=== PATIENT | female | born 1935 | race Caucasian/White ===

== ENCOUNTER 2016-06-19 12:28 | Emergency (ER) | payer MEDICARE, BC ==
--- NOTE | 2016-06-19 12:38 | EDM.PDOC ---
ED HPI GENERAL MEDICAL PROBLEM - General Chief Complaint: Genitourinary Problem Stated Complaint: abd pain Time Seen by Provider: 06/19/16 12:28 Source of Information: Reports: Patient, Family (Son, daughter), Old records ( [facility] chart/EMR) History Limitations: Reports: No limitations - History of Present Illness INITIAL COMMENTS - FREE TEXT/NARRATIVE: The patient was brought to the emergency room via private automobile by her son for evaluation of nonspecific left CVA tenderness with questionable colic component. Initially her symptoms began at about 3 a.m. with 200 mg ibuprofen taken at that time. She denies any gross hematuria or other UTI symptoms. He complains of 10/10 left CVA in back pain at about 3 a.m. with improvement to 1/ 10 on arrival to the emergency room. The patient was evaluated by her regular provider, Cristin Gamble PA-C, at [facility] in [place], prior to arrival in our facility with positive UA dip but no other treatment given in that facility. No recent history of other abdominal pain, heartburn, nausea, diarrhea, melena, gross hematochezia, or any food intolerance, including fatty foods, etc. with normal bowel movement earlier this morning. The patient denies any chest pain/pressure, heart flutter, dizziness, orthostasis, orthopnea, diaphoresis, paresthesias, recent decreased exercise tolerance, or any other anginal-type symptoms. The patient also denies any recent fever, cough, wheezing , dyspnea, etc.. No history of recent headaches, visual changes, diplopia, change in mental status, or other change in neurological status. Note that she did not take her morning medications today other than her Synthroid Onset: today, sudden Onset Date: 06/19/16 Onset Time: 03:00 Duration: Intermittent, Improving Location: Reports: abdomen, back Quality: Reports: Sharp Severity: severe Improves with: Reports: None Worsens with: Reports: None Context: Reports: Other (As above) Associated Symptoms: Reports: no other symptoms. 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 (As above) Left Upper Posterior Abdominal Pain Score (Numeric/FACES): 1 - Related Data Allergies Allergy/AdvReac Type Severity Reaction Status Date / Time levofloxacin [From Levaquin] Allergy Rash Verified 06/19/16 12:40 Penicillins Allergy Rash Verified 06/19/16 12:40 Sulfa (Sulfonamide Allergy Rash Verified 06/19/16 12:40 Antibiotics) Home Meds: Home Meds Atenolol [Tenormin] 25 mg PO BID 03/31/14 [History] Levothyroxine Sodium [Synthroid] 75 mcg PO DAILY 03/31/14 [History] Aspirin 81 mg PO ONETIME 02/24/15 [History] Lisinopril 10 mg PO DAILY 02/24/15 [History] Nitrofurantoin Monohyd/M-Cryst [Macrobid 100 mg Capsule] 100 mg PO DAILY #14 capsule 06/19/16 [Rx] Past Medical History HEENT History: Reports: Cataract, Hard of hearing, Impaired vision, Macular degeneration, Other (see below). Denies: Allergic rhinitis, Glaucoma, Retinal detachment Other HEENT History: Wears glasses, bilateral hearing aides, bilateral macular degeneration with current intraocular treatments Cardiovascular History: Reports: Arrhythmia, High cholesterol, Hypertension, Pacemaker, Other (see below). Denies: Afib, Aneurysm, Blood clots/VTE/DVT, Bypass, CAD, Heart murmur, IN, PTCA, PVD, Stents, Syncope Other Cardiovascular History: Pacemaker placement as below secondary to sick sinus syndrome, Mobitz 1 second-degree AV block, and then subsequent complete heart block, mild cardiomegaly by chest x-ray Respiratory History: Reports: COPD, Other (see below). Denies: Asthma, Intubation, difficult, Intubation, previous, PE, Pneumothorax, Pulmonary fibrosis, Sleep apnea, TB Other Respiratory History: COPD by chest x-ray with no treatment needed at this time Gastrointestinal History: Reports: Chronic constipation, Diverticulosis, Gastritis, GERD, Jaundice, Other (see below). Denies: Bowel obstruction, Celiac disease, Cholelithiasis, Chronic diarrhea, Colon polyp, Fecal incontinence, GI bleed, Hepatitis, Inflammatory bowel disease, Irritable bowel syndrome, Pancreatitis, PUD Other Gastrointestinal History: jaundice, benign hepatic cysts Genitourinary History: Reports: Retention, urinary, UTI, recurrent, Other (see below). 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 Denies: Dysfunctional uterine bleeding, Endometriosis, Fibroids, Polycystic Ovaries : 8 Para: 6 LMP (Approximate): Menopausal Other OB/BYN History: Menopause in her 40s, first trimester SAB with D&C as below, otherwise Full term without complications during pregnancies or deliveries Musculoskeletal History: Reports: Arthritis, Back pain, chronic, Fracture, Neck pain, chronic, Osteoarthritis, Osteoporosis, Other (see below). Denies: Gout, RA, SLE Other Musculoskeletal History: Left wrist fracture on 08/24/14, left partial Achilles tendon tear on 04/27/14, pes planus, right foot fracture in the early , scoliosis Neurological History: Reports: Headaches, chronic, Migraines, Other (see below) . Denies: Alzheimers disease, Cerebral aneurysms, Concussion, CVA, Head trauma , MS, Neuropathy, diabetic, Neuropathy, peripheral, Parkinson's, Seizure, TIA, Vertigo Other Neuro History: Previous history of migraine headaches currently under good control Psychiatric History: Reports: Anxiety, Depression. Denies: Abuse, victim of, ADD, ADHD, Addiction, Panic attack, Psych Hospitalization(s), PTSD, Suicide attempt, Suicidal ideation Endocrine/Metabolic History: Reports: Hypothyroidism, Osteoporosis, Other (see below). Denies: Diabetes, type I, Diabetes, type II, IDDM Other Endocrine/Metabolic History: Thyroid surgery as below with secondary hypothyroidism and history of multiple thyroid cysts Hematologic History: Reports: None. Denies: Anemia, Blood transfusion(s), Iron deficiency Immunologic History: Reports: None. Denies: AIDS, HIV, SLE Oncologic (Cancer) History: Reports: None. Denies: Basal cell carcinoma, Cervix , Colon, Hodgkin's Lymphoma, Leukemia, Malignant melanoma, Non-Hodgkin's Lymphoma, Squamous cell carcinoma Dermatologic History: Reports: None. Denies: Eczema, Psoriasis - Infectious Disease History Infectious Disease History: Reports: Chicken pox, Mumps, Pertussis (whooping cough), Rubella, Scarlet fever. Denies: C-difficile, Helicobacter pylori, Measles, Meningitis, Mononucleosis, MRSA, Rheumatic Fever, Shingles, TB, VRE - Past Surgical History Head Surgeries/Procedures: Reports: None. Denies: Craniotomy HEENT Surgical History: Reports: Cataract surgery, Other (see below). Denies: Adenoidectomy, Eye surgery, Laser surgery, LASIK, Myringotomy w tube(s), Naso- sinus surgery, Oral surgery, Tonsillectomy Other HEENT Surgeries/Procedures: [place] teeth extraction x4 in her 20s, multiple teeth extractions, bilateral cataract surgery with right sided extraction in about 2014 and left-sided cataract surgery in about 2004 Cardiovascular Surgical History: Reports: Pacer, Other (see below). Denies: Aneurysm, Varicose, Vascular surgery Other Cardiovascular Surgeries/Procedures: 10/09/07 Respiratory Surgical History: Reports: None. Denies: Lung Biopsies, Thoracentesis GI Surgical History: Reports: Appendectomy, Other (see below). Denies: Cholecystectomy, Colonoscopy, EGD, Hernia, abdominal, Hernia, inguinal, Hernia repair/other Other GI Surgeries/Procedures: Appendectomy on 12/25/14 Female Surgical History: Reports: Breast biopsy, D&C, Tubal ligation, Other ( see below). Denies: section Other Female Surgeries/Procedures: Right breast biopsy for benign disease in in about 1962, D&C secondary to SAB in about 1959, bilateral tubal ligation in her early 30s Endocrine Surgical History: Reports: Thyroid biopsy, Thyroidectomy, Other (see below) Other Endocrine Surgeries/Procedures: Left partial hemithyroidectomy in the , Neurological Surgical History: Reports: None. Denies: C-Spine, Discectomy, Laminectomy, Lumbar spine, Spinal fusion, Vertebroplasty Musculoskeletal Surgical History: Reports: Arthroscopic knee, Arthroscopic procedure, Other (see below). Denies: Amputation, Carpal tunnel, Ganglion cyst , Joint replacement, ORIF, Shoulder surgery Other Musculoskeletal Surgeries/Procedures:: Right arthroscopic knee surgery in in about 1989 Oncologic Surgical History: Reports: Biopsy of breast (Breast biopsy as above) Dermatological Surgical History: Reports: None - Past Imaging History Past Imaging History: Reports: CAT scan (CT of the abdomen and pelvis with contrast on 02/24/15 and 08/26/09), DEXA scan (12/18/11), Stress testing ( Cardiolite stress test on 04/15/03), Ultrasound (Thyroid ultrasound on 11/24/13, arterial Doppler elevation and evaluation of the left forearm on 11/05/12, renal ultrasound on 03/15/12, gallbladder ultrasound on 11/15/06) Social & Family History - Tobacco Use Smoking Status *Q: Never Smoker Smoking Cessation Information Provided To Patient: No Second Hand Smoke Education Provided: No - Caffeine Use Caffeine Use: Reports: Coffee (3 tabs per day). Denies: Energy drinks, Soda, Tea - Alcohol Use Alcohol Use History: Yes Days Per Week of Alcohol Use: 4 (No previous DWIs, problems with alcohol abuse, etc.) Number of Drinks Per Day: 1 (Usually wine) Total Drinks Per Week: 4 Alcohol Use in Last Twelve Months: Yes Alcohol Use Frequency: Socially - Recreational Drug Use Recreational Drug Use: No Drug Use in Last 12 Months: No Recreational Drug Type: Denies: Amphetamines (Speed), Cocaine, Heroin, Inhalants (Glues, Solvents, Aerosols), LSD (Acid), Marijuana/Hashish, Methamphetamine - Living Situation & Occupation Living situation: Reports: (2012, 5 children living), alone Occupation: other ([employer] in the past) ED ROS GENERAL - Review of Systems Review Of Systems: See Below Constitutional: Reports: no symptoms. Denies: fever, chills, malaise, weakness , fatigue, night sweats, diaphoresis, decreased appetite, weight loss, weight gain HEENT: Reports: No symptoms, Glasses. Denies: Dental pain, Ear discharge, Ear pain, Eye pain, Sinus problem, Throat pain, Vertigo, Vision change Respiratory: Reports: No Symptoms. Denies: Shortness of Breath, Wheezing, Pleuritic Chest Pain, Cough Cardiovascular: Reports: Blood pressure problem (Blood pressure significantly elevated on arrival with patient not taking her morning medications). Denies: Chest pain, Dyspnea on exertion, Edema, Lightheadedness, Orthopnea, Palpitations , PND, Syncope Endocrine: Reports: no symptoms. Denies: fatigue GI/Abdominal: Reports: Abdominal pain (Colic as above). Denies: Anorexia, Black stool, Bloody stool, Constipation, Diarrhea, Decreased appetite, Difficulty swallowing, Distension, Flatus, Hematemesis, Hematochezia, Melena, Mucous in stool, Nausea, Stool incontinence, Vomiting : Reports: pain (Left CVA colic). Denies: discharge, frequency, hematuria, incontinence, urgency, urinary retention Musculoskeletal: Reports: no symptoms. Denies: neck pain, shoulder pain, arm pain, back pain, hand pain, leg pain Skin: Reports: no symptoms. Denies: jaundice, pallor, diaphoresis, bruising, wound Neurological: Reports: No Symptoms. Denies: Confusion, Dizziness, Headache, Numbness, Paresthesia, Syncope, Tingling, Weakness Psychiatric: Reports: No symptoms. Denies: Agitation, Anxiety, Confusion, Depression Hematologic/Lymphatic: Reports: no symptoms Immunologic: Reports: no symptoms ED EXAM, GENERAL - Physical Exam Exam: See Below Exam Limited By: No limitations General Appearance: alert, WD/WN, no apparent distress Ears: normal external exam, normal canal, normal TMs, hearing loss (Left-sided hearing aid) Nose: normal inspection, normal mucosa, no blood Throat/Mouth: Normal inspection, Normal lips, Normal gums, Normal oropharynx, Normal voice, No airway compromise. No: Normal teeth (Partial upper dentures, multiple missing teeth lowers), Dysphagia, Inflammation Head: atraumatic, normocephalic. No: facial swelling, facial tenderness, sinus tenderness Neck: normal inspection, supple, non-tender, full range of motion, carotid bruit (Mild bilateral carotid bruits). No: lymphadenopathy (L), lymphadenopathy (R), thyromegaly Respiratory/Chest: no respiratory distress, lungs clear, normal breath sounds, no accessory muscle use, chest non-tender. No: pleural rub, retractions Cardiovascular: normal peripheral pulses, regular rate, rhythm, no edema, no gallop, no JVD, no murmur, no rub. No: gallop/S3, gallop/S4, friction rub Peripheral Pulses: 4+: radial (L), radial (R) GI/Abdominal: normal bowel sounds, soft, non tender, no organomegaly, no distention, no abnormal bruit, no mass. No: guarding, rebound (Female) Exam: Deferred Rectal (Female) Exam: Deferred Back Exam: normal inspection, full range of motion. No: CVA tenderness (L) ( Despite above history), CVA tenderness (R), muscle spasm Extremities: normal inspection, normal range of motion, non-tender, no pedal edema, normal capillary refill, other (Bilateral pes planus-mild to moderate). No: Eileen's Sign Neurological: alert, oriented, CN II-XII intact, normal cognition, normal gait, normal reflexes (Negative Babinski's), no motor/sensory deficits Psychiatric: anxious (Mild). No: depressed mood Skin Exam: Warm, Dry, Intact, Normal color, No rash. No: Diaphoretic, Ecchymosis, Jaundice, Pallor, Petechiae, Rash, Wound/incision Lymphatic: no adenopathy Course - Vital Signs Last Recorded V/S: Last Vital Signs Temp Pulse 92 06/19/16 12:44 Resp BP 210/102 H 06/19/16 12:44 Pulse Ox Vital Signs - 24 hr 06/19/16 06/19/16 06/19/16 12:28 12:44 12:49 Temperature [ 36.6 C Oral] Pulse, 92 Peripheral Pulse, 61 60 Peripheral [ Right Pulse Oximetry] Respiratory 16 16 Rate Blood Pressure 210/102 H Blood Pressure 210/102 H 160/74 H [Right Upper Arm] O2 Sat by Pulse 99 98 Oximetry 06/19/16 06/19/16 06/19/16 13:04 13:19 13:34 Temperature [ Oral] Pulse, Peripheral Pulse, 60 60 Peripheral [ Right Pulse Oximetry] Respiratory 16 16 Rate Blood Pressure Blood Pressure 164/72 H 145/70 H 161/68 H [Right Upper Arm] O2 Sat by Pulse 95 99 Oximetry 06/19/16 13:49 Temperature [ Oral] Pulse, Peripheral Pulse, 59 L Peripheral [ Right Pulse Oximetry] Respiratory Rate Blood Pressure Blood Pressure 159/82 H [Right Upper Arm] O2 Sat by Pulse Oximetry - Orders/Labs/Meds Orders: Active Orders 24 hr Category Date Time Status Abdomen Comp [US] Stat Exams 06/19/16 12:47 Ordered CULTURE URINE [RM] Routine Lab 06/19/16 14:08 Received Durable Medical Equipment for Discharge [DME for Oth 06/19/16 14:44 Ordered Discharge] [COMM] Routine Obtain Past Medical Record [OM.PC] Routine Oth 06/19/16 12:47 Active Labs: Laboratory Tests 06/19/16 06/19/16 06/19/16 Range/Units 12:50 12:50 12:50 WBC 6.0 (4.0-10.2) K/uL RBC 3.64 L (3.77-5.09) M/uL Hgb 12.8 D (11.7-15.5) g/dL Hct 36.6 (34.0-46.0) % MCV 100.5 H D (84.0-98.0) fL MCH 35.2 H (28.2-33.3) pg MCHC 35.0 (31.7-36.0) g/dL RDW 12.9 (11.2-14.1) % Plt Count 238 (150-350) K/uL Neut % (Auto) 67.4 (45.0-80.0) % Lymph % (Auto) 21.3 (10.0-50.0) % [place] % (Auto) 8.7 (2.0-14.0) % Eos % (Auto) 2.3 (0.0-5.0) % Baso % (Auto) 0.3 (0.0-2.0) % Neut # (Auto) 4.02 (1.40-7.00) K/uL Lymph # (Auto) 1.27 (0.50-3.50) K/uL [place] # (Auto) 0.52 (0.00-1.00) K/uL Eos # (Auto) 0.14 (0.00-0.50) K/uL Baso # (Auto) 0.02 (0.00-0.20) K/uL PT 11.5 (9.8-11.7) SEC INR 1.1 APTT 26.6 (23.5-30.0) SEC Sodium 138 (136-145) mmol/L Potassium 3.8 (3.5-5.1) mmol/L Chloride 104 (98-107) mmol/L Carbon Dioxide 26.1 (21.0-32.0) mmol/L BUN 11 (7-18) mg/dL Creatinine 0.91 (0.51-1.17) mg/dL Est Cr Clr Drug Dosing TNP Estimated GFR (MDRD) 59 mL/min Glucose 97 (74-106) mg/dL Lactic Acid (0.4-2.0) mmol/L Uric Acid 4.0 (2.6-7.2) mg/dL Calcium 8.5 (8.5-10.1) mg/dL Magnesium 1.8 (1.8-2.4) mg/dL Total Bilirubin 0.6 (0.2-1.0) mg/dL AST 18 (15-37) U/L ALT 18 (12-78) U/L Alkaline Phosphatase 84 (46-116) IU/L Total Protein 6.5 (6.4-8.2) g/dL Albumin 3.4 (3.4-5.0) g/dL Amylase 66 (25-115) U/L Lipase 156 (73-393) U/L Specimen Type Urine Color Urine Appearance Urine pH (5.0-9.0) Ur Specific [place] (1.005-1.030) Urine Protein (NEGATIVE) mg/dL Urine Glucose (UA) (NEGATIVE) mg/dL Urine Ketones (NEGATIVE) mg/dL Urine Occult Blood (NEGATIVE) Urine Nitrite (NEGATIVE) Urine Bilirubin (NEGATIVE) Urine Urobilinogen (0.2-1.0) E.U./dL Ur Leukocyte Esterase (NEGATIVE) Urine RBC /HPF Urine WBC /HPF Ur Epithelial Cells /LPF Urine Bacteria (NONE TO FEW) /HPF 06/19/16 06/19/16 Range/Units 12:50 14:08 WBC (4.0-10.2) K/uL RBC (3.77-5.09) M/uL Hgb (11.7-15.5) g/dL Hct (34.0-46.0) % MCV (84.0-98.0) fL MCH (28.2-33.3) pg MCHC (31.7-36.0) g/dL RDW (11.2-14.1) % Plt Count (150-350) K/uL Neut % (Auto) (45.0-80.0) % Lymph % (Auto) (10.0-50.0) % [place] % (Auto) (2.0-14.0) % Eos % (Auto) (0.0-5.0) % Baso % (Auto) (0.0-2.0) % Neut # (Auto) (1.40-7.00) K/uL Lymph # (Auto) (0.50-3.50) K/uL [place] # (Auto) (0.00-1.00) K/uL Eos # (Auto) (0.00-0.50) K/uL Baso # (Auto) (0.00-0.20) K/uL PT (9.8-11.7) SEC INR APTT (23.5-30.0) SEC Sodium (136-145) mmol/L Potassium (3.5-5.1) mmol/L Chloride (98-107) mmol/L Carbon Dioxide (21.0-32.0) mmol/L BUN (7-18) mg/dL Creatinine (0.51-1.17) mg/dL Est Cr Clr Drug Dosing Estimated GFR (MDRD) mL/min Glucose (74-106) mg/dL Lactic Acid 0.8 (0.4-2.0) mmol/L Uric Acid (2.6-7.2) mg/dL Calcium (8.5-10.1) mg/dL Magnesium (1.8-2.4) mg/dL Total Bilirubin (0.2-1.0) mg/dL AST (15-37) U/L ALT (12-78) U/L Alkaline Phosphatase (46-116) IU/L Total Protein (6.4-8.2) g/dL Albumin (3.4-5.0) g/dL Amylase (25-115) U/L Lipase (73-393) U/L Specimen Type Urincc Urine Color Light yellow Urine Appearance Slightly cloudy Urine pH 7.0 (5.0-9.0) Ur Specific [place] 1.020 (1.005-1.030) Urine Protein Negative (NEGATIVE) mg/dL Urine Glucose (UA) Negative (NEGATIVE) mg/dL Urine Ketones Trace H (NEGATIVE) mg/dL Urine Occult Blood Moderate H (NEGATIVE) Urine Nitrite Positive H (NEGATIVE) Urine Bilirubin Negative (NEGATIVE) Urine Urobilinogen 0.2 (0.2-1.0) E.U./dL Ur Leukocyte Esterase Small H (NEGATIVE) Urine RBC 0-5 /HPF Urine WBC 10-20 H /HPF Ur Epithelial Cells Moderate H /LPF Urine Bacteria Many H (NONE TO FEW) /HPF Urine specimen set up for culture and sensitivity Meds: Medications Discontinued Medications Generic Name Dose Route Start Last Admin Trade Name Freq PRN Reason Stop Dose Admin Metoprolol Tartrate 2.5 mg 06/19/16 12:39 06/19/16 12:44 Lopressor IVPUSH 06/19/16 12:40 2.5 mg ONETIME ONE Administration - Radiology Interpretation Free Text/Narrative:: Verbal report at 13:55 hours with Berenice military pay technician from our facility , discussing complete abdominal ultrasound results. Likely stable bilateral renal cysts and hepatic cysts with additional stable by history prominent commen bile duct but no evidence of acute cholecystitis. No evidence of hydronephrosis or urolithiasis, although exam difficult secondary to bowel gas Departure - Departure Time of Disposition: 15:10 Disposition: Home, Self-Care 01 Condition: good Clinical Impression: UTI, Urinary tract infectious disease, Hepatic cyst, Renal cyst Hyperlipidemia Qualifiers: Hyperlipidemia type: unspecified Qualified Code(s): E78.5 - Hyperlipidemia, unspecified Osteoarthritis Qualifiers: Osteoarthritis location: multiple joints Osteoarthritis type: primary Qualified Code(s): M15.0 - Primary generalized (osteo)arthritis Hypertension Qualifiers: Hypertension type: essential hypertension Qualified Code(s): I10 - Essential ( primary) hypertension Hypothyroidism Qualifiers: Hypothyroidism type: acquired Qualified Code(s): E03.9 - Hypothyroidism, unspecified COPD (chronic obstructive pulmonary disease) Qualifiers: COPD type: emphysema Emphysema type: panlobular Qualified Code(s): J43.1 - Panlobular emphysema Abdominal pain Qualifiers: Abdominal location: left upper quadrant Qualified Code(s): R10.12 - Left upper quadrant pain Prescriptions: Nitrofurantoin Monohyd/M-Cryst [Macrobid 100 mg Capsule] 100 mg PO DAILY #14 capsule Instructions: Urinary Tract Infection, Adult, [id number] Referrals: PCP,Unknown [Primary Care Provider] - Forms: ED Department Discharge Additional Instructions: 1. Followup with your regular provider in about 2-3 days for reevaluation and recommended CBC and basic metabolic panel 2. Take your morning medications COLETTE and also your initial dose of antibiotic as discussed 3. Tylenol 650 mg by mouth every 4 hours and/or OTC ibuprofen 2-3 tabs by mouth every 6 hours with food as directed./needed. 4. Encourage oral fluids, including daily cranberry use, etc.as directed. 5. Strain all urine and bring stone to your regular provider or this facility as directed for further stone analysis. 6. Urine tests should be repeated at follow up visit in about 10-14 days with possible repeat urine culture,etc. at that time. Today's urine culture is pending with results in about 2-3 days. We will call you, if we need to change your therapy. - Problem List & Annotations (1) UTI, Urinary tract infectious disease SNOMED Code(s): 24831347 Code(s): N39.0 - URINARY TRACT INFECTION, SITE NOT SPECIFIED Status: Acute Priority: High Current Visit: Yes Onset Date: 06/19/16 Annotation/ Comment:: Probable cystitis versus beginning pyelonephritis, although no fever or leukocytosis. Various therapeutic options were discussed with the patient and her family with CT scan of the abdomen and pelvis using stone protocol to be delayed for the time being. Note that her CT scan her was broken today with complete abdominal ultrasound results as above. No direct evidence of hydronephrosis or urolithiasis. Initiate Macrobid therapy with close followup by her regular provider as per discharge instructions. She was provided a strainer for collection of possible urinary stone, although her symptoms are more typical for her UTI rather than true colic (2) Abdominal pain SNOMED Code(s): 07821378 Code(s): R10.9 - UNSPECIFIED ABDOMINAL PAIN Status: Acute Priority: High Current Visit: Yes Onset Date: 06/19/16 Annotation/Comment:: As above Qualifiers: Abdominal location: left upper quadrant Qualified Code(s): R10.12 - Left upper quadrant pain (3) COPD (chronic obstructive pulmonary disease) SNOMED Code(s): 96672706 Code(s): J44.9 - CHRONIC OBSTRUCTIVE PULMONARY DISEASE, UNSPECIFIED Status : Chronic Priority: Medium Current Visit: Yes Annotation/Comment:: By chest x-ray with no recent fever bronchitic-type symptoms and no current medical therapy required Qualifiers: COPD type: emphysema Emphysema type: panlobular Qualified Code(s): J43.1 - Panlobular emphysema (4) Hepatic cyst SNOMED Code(s): 39511425 Code(s): K76.89 - OTHER SPECIFIED DISEASES OF LIVER Status: Chronic Priority: Medium Current Visit: Yes Annotation/Comment:: Stable by today's ultrasound (5) Hyperlipidemia SNOMED Code(s): 19042319 Code(s): E78.5 - HYPERLIPIDEMIA, UNSPECIFIED Status: Chronic Priority: Medium Current Visit: Yes Annotation/Comment:: Currently not under therapy Qualifiers: Hyperlipidemia type: unspecified Qualified Code(s): E78.5 - Hyperlipidemia , unspecified (6) Hypertension SNOMED Code(s): 02045505 Code(s): I10 - ESSENTIAL (PRIMARY) HYPERTENSION Status: Chronic Priority : High Current Visit: Yes Annotation/Comment:: Patient did not take her medications this morning. Overall good response with low-dose IV Lopressor in the emergency room. She was advised to take her morning medications COLETTE when she returns home Qualifiers: Hypertension type: essential hypertension Qualified Code(s): I10 - Essential (primary) hypertension (7) Hypothyroidism SNOMED Code(s): 03221959 Code(s): E03.9 - HYPOTHYROIDISM, UNSPECIFIED Status: Chronic Priority: Medium Current Visit: Yes Annotation/Comment:: Currently under therapy Qualifiers: Hypothyroidism type: acquired Qualified Code(s): E03.9 - Hypothyroidism, unspecified (8) Osteoarthritis SNOMED Code(s): 903978763 Code(s): M19.90 - UNSPECIFIED OSTEOARTHRITIS, UNSPECIFIED SITE Status: Chronic Priority: Medium Current Visit: Yes Annotation/Comment:: Otherwise stable by history with normal uric acid level today Qualifiers: Osteoarthritis location: multiple joints Osteoarthritis type: primary Qualified Code(s): M15.0 - Primary generalized (osteo)arthritis - Problem List Review Problem List Initiated/Reviewed/Updated: Yes - My Orders Last 24 Hours: My Active Orders 06/19/16 12:47 Abdomen Comp [US] Stat Obtain Past Medical Record [OM.PC] Routine 06/19/16 14:08 CULTURE URINE [RM] Routine 06/19/16 14:44 Durable Medical Equipment for Discharge [DME for Discharge] [COMM] Routine - Assessment/Plan Last 24 Hours: My Active Orders 06/19/16 12:47 Abdomen Comp [US] Stat Obtain Past Medical Record [OM.PC] Routine 06/19/16 14:08 CULTURE URINE [RM] Routine 06/19/16 14:44 Durable Medical Equipment for Discharge [DME for Discharge] [COMM] Routine Assessment:: As above Plan: As above. Extensive precautions were given to the patient and her family, who are in agreement with the treatment plan. See Patient Instructions for further treatment and plan.
[2016-06-19] MEDS ORDERED: Metoprolol Tartrate 5 MG/5 ML SDV IVPUSH ONE (12:39)
[2016-06-19 13:10] LABS: CHLORIDE,CL 104 mmol/L (98-107); SODIUM,NA 138 mmol/L (136-145)
[2016-06-19 14:56] VITALS: BP 159/82
== END 2016-06-19 15:10 | disposition home or self-care (01) ==
LOC: LL.ED 12:28
DX: N39.0 Urinary tract infection, site not specified (principal); K76.89 Other specified diseases of liver; N28.1 Cyst of kidney, acquired; E78.5 Hyperlipidemia, unspecified; M15.0 Primary generalized (osteo)arthritis; E03.9 Hypothyroidism, unspecified; I10 Essential (primary) hypertension; J43.1 Panlobular emphysema; Z88.0 Allergy status to penicillin; Z88.2 Allergy status to sulfonamides; Z88.1 Allergy status to other antibiotic agents; Z79.82 Long term (current) use of aspirin; Z98.890 Other specified postprocedural states
CPT/HCPCS: 36415; 76700; 80053; 81001; 82150; 83605; 83690; 83735; 84550; 85025; 85610; 85730; 87086; 87088; 87186; 96374; 99283; 99285; J3490

== ENCOUNTER 2016-06-29 10:07 | Emergency (ER) | payer MEDICARE, BC ==
[2016-06-29 10:14] VITALS: BP 145/81
--- NOTE | 2016-06-29 10:28 | EDM.PDOC ---
ED HPI GENERAL MEDICAL PROBLEM - General Chief Complaint: General Stated Complaint: Wood tick by eye Time Seen by Provider: 06/29/16 10:10 Source of Information: Reports: Patient, Old records ([facility] chart/EMR) History Limitations: Reports: No limitations - History of Present Illness INITIAL COMMENTS - FREE TEXT/NARRATIVE: The patient drove herself to the emergency room via private automobile for evaluation of a probable wood tick under her right eye, which was diagnosed by her chiropractor shortly prior to arrival to our facility. She was apparently bitten in her home in the evening of 06/23 with some increasing redness and mild discomfort since that time. She does have a dog at home. The patient was evaluated by her regular provider, Cristin Gamble PA-C, at [facility] in [facility] on 06/26 and started on oral Keflex and Cipro eyedrops with mild cellulitis secondary to a skin tag diagnosed at that time. The patient has not had any ocular drainage, rashes in other locations, arthralgias, etc.. Note that the patient is also suffering from a UTI with increase of her Keflex therapy to 500 mg dose at time of office visit on 06/26. The patient also denies any recent fever, cough, wheezing, dyspnea, etc.. Onset: sudden Onset Date: 06/23/16 Duration: Getting worse, Improving Quality: Reports: Ache Severity: mild Improves with: Reports: None Worsens with: Reports: None Context: Reports: Other (As above) Associated Symptoms: Reports: rash (Mild erythema at the insect bite site). Denies: confusion, chest pain, cough, diaphoresis, fever/chills, headaches, loss of appetite, malaise, nausea/vomiting, shortness of breath, syncope, weakness Treatments FOREST ECONOMIST: Reports: Other medication(s) (As above) Right Middle Face Pain Score (Numeric/FACES): 2 - Related Data Allergies Allergy/AdvReac Type Severity Reaction Status Date / Time levofloxacin [From Levaquin] Allergy Rash Verified 06/29/16 10:20 Penicillins Allergy Rash Verified 06/29/16 10:20 Sulfa (Sulfonamide Allergy Rash Verified 06/29/16 10:20 Antibiotics) Home Meds: Home Meds Atenolol [Tenormin] 25 mg PO BID 03/31/14 [History] Levothyroxine Sodium [Synthroid] 75 mcg PO DAILY 03/31/14 [History] Aspirin 81 mg PO ONETIME 02/24/15 [History] Lisinopril 10 mg PO DAILY 02/24/15 [History] Cephalexin 500 mg PO TID 06/29/16 [History] Ciprofloxacin [IJD: Ciloxan 0.3% Ophth Soln] 1 drop EYERT BID 06/29/16 [History] Doxycycline [Vibramycin] 100 mg PO BID #20 cap 06/29/16 [Rx] Past Medical History HEENT History: Reports: Cataract, Hard of hearing, Impaired vision, Macular degeneration, Other (see below). Denies: Allergic rhinitis, Glaucoma, Retinal detachment Other HEENT History: Wears glasses, bilateral hearing aides, bilateral macular degeneration with current intraocular treatments Cardiovascular History: Reports: Arrhythmia, High cholesterol, Hypertension, Pacemaker, Other (see below). Denies: Afib, Aneurysm, Blood clots/VTE/DVT, Bypass, CAD, Heart murmur, MN, PTCA, PVD, Stents, Syncope Other Cardiovascular History: Pacemaker placement as below secondary to sick sinus syndrome, Mobitz 1 second-degree AV block, and then subsequent complete heart block, mild cardiomegaly by chest x-ray Respiratory History: Reports: COPD, Other (see below). Denies: Asthma, Intubation, difficult, Intubation, previous, PE, Pneumothorax, Pulmonary fibrosis, Sleep apnea, TB Other Respiratory History: COPD by chest x-ray with no treatment needed at this time Gastrointestinal History: Reports: Chronic constipation, Diverticulosis, Gastritis, GERD, Jaundice, Other (see below). Denies: Bowel obstruction, Celiac disease, Cholelithiasis, Chronic diarrhea, Colon polyp, Fecal incontinence, GI bleed, Hepatitis, Inflammatory bowel disease, Irritable bowel syndrome, Pancreatitis, PUD Other Gastrointestinal History: jaundice, benign hepatic cysts Genitourinary History: Reports: Retention, urinary, UTI, recurrent, Other (see below). Denies: Acute renal failure, Chronic renal insuffiency, Dialysis, Renal calculus, STD, Urinary incontinence Other Genitourinary History: Bilateral benign renal cysts, benign left renal hamartoma a CT scan in August 2009 and as below ICE HANDLER History: Reports: , Spontaneous . Denies: Dysfunctional uterine bleeding, Endometriosis, Fibroids, Polycystic Ovaries : 8 Para: 6 LMP (Approximate): Menopausal Other OB/BYN History: Menopause in her 40s, first trimester SAB with D&C as below, otherwise Full term without complications during pregnancies or deliveries Musculoskeletal History: Reports: Arthritis, Back pain, chronic, Fracture, Neck pain, chronic, Osteoarthritis, Osteoporosis, Other (see below). Denies: Gout, RA, SLE Other Musculoskeletal History: Left wrist fracture on 08/24/14, left partial Achilles tendon tear on 04/27/14, pes planus, right foot fracture in the early , scoliosis Neurological History: Reports: Headaches, chronic, Migraines, Other (see below) . Denies: Alzheimers disease, Cerebral aneurysms, Concussion, CVA, Head trauma , MS, Neuropathy, diabetic, Neuropathy, peripheral, Parkinson's, Seizure, TIA, Vertigo Other Neuro History: Previous history of migraine headaches currently under good control Psychiatric History: Reports: Anxiety, Depression. Denies: Abuse, victim of, ADD, ADHD, Addiction, Panic attack, Psych Hospitalization(s), PTSD, Suicide attempt, Suicidal ideation Endocrine/Metabolic History: Reports: Hypothyroidism, Osteoporosis, Other (see below). Denies: Diabetes, type I, Diabetes, type II, IDDM Other Endocrine/Metabolic History: Thyroid surgery as below with secondary hypothyroidism and history of multiple thyroid cysts Hematologic History: Reports: None. Denies: Anemia, Blood transfusion(s), Iron deficiency Immunologic History: Reports: None. Denies: AIDS, HIV, SLE Oncologic (Cancer) History: Reports: None. Denies: Basal cell carcinoma, Cervix , Colon, Hodgkin's Lymphoma, Leukemia, Malignant melanoma, Non-Hodgkin's Lymphoma, Squamous cell carcinoma Dermatologic History: Reports: None. Denies: Eczema, Psoriasis - Infectious Disease History Infectious Disease History: Reports: Chicken pox, Mumps, Pertussis (whooping cough), Rubella, Scarlet fever. Denies: C-difficile, Helicobacter pylori, Measles, Meningitis, Mononucleosis, MRSA, Rheumatic Fever, Shingles, TB, VRE - Past Surgical History Head Surgeries/Procedures: Reports: None. Denies: Craniotomy HEENT Surgical History: Reports: Cataract surgery, Other (see below). Denies: Adenoidectomy, Eye surgery, Laser surgery, LASIK, Myringotomy w tube(s), Naso- sinus surgery, Oral surgery, Tonsillectomy Other HEENT Surgeries/Procedures: [place] teeth extraction x4 in her 20s, multiple teeth extractions, bilateral cataract surgery with right sided extraction in about 2014 and left-sided cataract surgery in about 2004 Cardiovascular Surgical History: Reports: Pacer, Other (see below). Denies: Aneurysm, Varicose, Vascular surgery Other Cardiovascular Surgeries/Procedures: Pacemaker placement on 10/09/07 Respiratory Surgical History: Reports: None. Denies: Lung Biopsies, Thoracentesis GI Surgical History: Reports: Appendectomy, Other (see below). Denies: Cholecystectomy, Colonoscopy, EGD, Hernia, abdominal, Hernia, inguinal, Hernia repair/other Other GI Surgeries/Procedures: Appendectomy on 12/25/14 Female Surgical History: Reports: Breast biopsy, D&C, Tubal ligation, Other ( see below). Denies: section Other Female Surgeries/Procedures: Right breast biopsy for benign disease in in about 1962, D&C secondary to SAB in about 1959, bilateral tubal ligation in her early 30s Endocrine Surgical History: Reports: Thyroid biopsy, Thyroidectomy, Other (see below) Other Endocrine Surgeries/Procedures: Left partial hemithyroidectomy in the , Neurological Surgical History: Reports: None. Denies: C-Spine, Discectomy, Laminectomy, Lumbar spine, Spinal fusion, Vertebroplasty Musculoskeletal Surgical History: Reports: Arthroscopic knee, Arthroscopic procedure, Other (see below). Denies: Amputation, Carpal tunnel, Ganglion cyst , Joint replacement, ORIF, Shoulder surgery Other Musculoskeletal Surgeries/Procedures:: Right arthroscopic knee surgery in in about 1989 Oncologic Surgical History: Reports: Biopsy of breast (Breast biopsy as above) Dermatological Surgical History: Reports: None - Past Imaging History Past Imaging History: Reports: CAT scan (CT of the abdomen and pelvis with contrast on 02/24/15 and 08/26/09), DEXA scan (12/18/11), Stress testing ( Cardiolite stress test on 04/15/03), Ultrasound (Thyroid ultrasound on 11/24/13, arterial Doppler elevation and evaluation of the left forearm on 11/05/12, renal ultrasound on 03/15/12, gallbladder ultrasound on 11/15/06) Social & Family History - Tobacco Use Smoking Status *Q: Never Smoker Used Tobacco, but Quit: No Smoking Cessation Information Provided To Patient: No Second Hand Smoke Exposure: No Second Hand Smoke Education Provided: No - Caffeine Use Caffeine Use: Reports: Coffee (3 cups per day). Denies: Energy drinks, Soda, Tea - Alcohol Use Alcohol Use History: Yes Days Per Week of Alcohol Use: 4 (No previous DWIs, problems with alcohol abuse, etc.) Number of Drinks Per Day: 1 (Usually wine) Total Drinks Per Week: 4 Alcohol Use in Last Twelve Months: Yes Alcohol Use Frequency: Socially - Recreational Drug Use Recreational Drug Use: No Drug Use in Last 12 Months: No Recreational Drug Type: Denies: Amphetamines (Speed), Cocaine, Heroin, Inhalants (Glues, Solvents, Aerosols), LSD (Acid), Marijuana/Hashish, Methamphetamine, Morphine - Living Situation & Occupation Living situation: Reports: (2013, 5 children living), alone Occupation: other ([employer] in the past) ED ROS GENERAL - Review of Systems Review Of Systems: See Below Constitutional: Reports: no symptoms. Denies: fever, chills, malaise, weakness , fatigue, night sweats, diaphoresis, decreased appetite, weight loss, weight gain HEENT: Reports: Hearing loss (With bilateral hearing aids to stable), Other ( Wood tick under right eye with mild surrounding redness). Denies: Ear discharge , Ear pain, Eye discharge, Eye pain, Glasses, Nose pain, Rhinitis, Sinus problem , Throat pain, Vertigo, Vision change Respiratory: Reports: No Symptoms. Denies: Shortness of Breath, Wheezing, Pleuritic Chest Pain, Cough, Hemoptysis Cardiovascular: Reports: No symptoms. Denies: Chest pain, Blood pressure problem, Claudication, Dyspnea on exertion, Edema, Lightheadedness, Orthopnea, Palpitations, PND, Syncope Endocrine: Reports: no symptoms. Denies: fatigue GI/Abdominal: Reports: No symptoms. Denies: Abdominal pain, Anorexia, Black stool, Bloody stool, Constipation, Diarrhea, Decreased appetite, Difficulty swallowing, Flatus, Melena, Nausea, Stool incontinence, Vomiting : Reports: no symptoms. Denies: discharge, dysuria, flank pain, frequency, hematuria, incontinence, pain, urgency, urinary retention Musculoskeletal: Reports: no symptoms. Denies: neck pain, shoulder pain, arm pain, back pain, leg pain, joint pain, joint swelling, muscle pain Skin: Reports: erythema (As above). Denies: diaphoresis, bruising, pruritis, rash Neurological: Reports: No Symptoms. Denies: Confusion, Dizziness, Headache, Numbness, Paresthesia, Tingling, Weakness Psychiatric: Reports: No symptoms. Denies: Agitation, Anxiety, Confusion, Depression Hematologic/Lymphatic: Reports: no symptoms Immunologic: Reports: no symptoms ED EXAM, GENERAL - Physical Exam Exam: See Below Exam Limited By: No limitations General Appearance: alert, WD/WN, no apparent distress Eye Exam: bilateral eye: EOMI, normal inspection (No conjunctival injection, ocular drainage, etc. with only minimally swollen mid aspect of the inferior right eyelid with 0.5 centimeter wood tic noted just below the mid lower eyelid) , PERRL Ears: normal external exam, normal canal, normal TMs, hearing loss (Mild bilateral presbycusis with adequate bilateral hearing aid therapy) Nose: normal inspection, normal mucosa, no blood Throat/Mouth: Normal inspection, Normal lips, Normal teeth, Normal gums, Normal oropharynx, Normal voice, No airway compromise. No: Dysphagia, Perioral cyanosis Head: atraumatic, normocephalic, facial tenderness (Equivocal tenderness over the insect bite site with surrounding 1 cm in diameter area of +1 erythema, no lymphangitis or drainage). No: facial swelling, sinus tenderness Neck: normal inspection, supple, non-tender, full range of motion. No: lymphadenopathy (L), lymphadenopathy (R), thyromegaly Respiratory/Chest: no respiratory distress, lungs clear, normal breath sounds, no accessory muscle use, chest non-tender. No: pleural rub, retractions Cardiovascular: normal peripheral pulses, regular rate, rhythm, no edema, no gallop, no JVD, no murmur, no rub. No: gallop/S3, gallop/S4, friction rub Peripheral Pulses: 4+: radial (L), radial (R) GI/Abdominal: normal bowel sounds, soft, non tender, no organomegaly, no distention, no abnormal bruit, no mass. No: guarding (Female) Exam: Deferred Rectal (Female) Exam: Deferred Back Exam: normal inspection, full range of motion. No: CVA tenderness (L), CVA tenderness (R), muscle spasm Extremities: normal inspection, normal range of motion, non-tender, normal capillary refill, no pedal edema Neurological: alert, oriented, CN II-XII intact, normal cognition, normal gait, no motor/sensory deficits Psychiatric: normal affect Skin Exam: Erythema (As above), Wound/incision (Tick as above). No: Diaphoretic , Lymphangitis, Rash Lymphatic: no adenopathy Course - Vital Signs Last Recorded V/S: Last Vital Signs Temp 36.9 C 06/29/16 10:13 Pulse 60 06/29/16 10:13 Resp 16 06/29/16 10:13 BP 145/81 H 06/29/16 10:13 Pulse Ox 99 06/29/16 10:13 Vital Signs - 24 hr 06/29/16 10:13 Temperature [ 36.9 C Temporal] Pulse, 60 Peripheral [ Pulse Oximetry] Respiratory 16 Rate Blood Pressure 145/81 H [Right Upper Arm] O2 Sat by Pulse 99 Oximetry - Orders/Labs/Meds Labs: None Meds: Medications Discontinued Medications Generic Name Dose Route Start Last Admin Trade Name Freq PRN Reason Stop Dose Admin Neomycin/Polymyxin/Bacitracin 1 each 06/29/16 10:30 06/29/16 10:34 Triple Antibiotic Oint TOP 06/29/16 10:31 1 each ONETIME ONE Administration - Radiology Interpretation Free Text/Narrative:: None Departure - Departure Time of Disposition: 10:43 Disposition: Home, Self-Care 01 Condition: good Clinical Impression: Wood tick bite, UTI, Urinary tract infectious disease Cellulitis Qualifiers: Site of cellulitis: face Qualified Code(s): L03.211 - Cellulitis of face COPD (chronic obstructive pulmonary disease) Qualifiers: COPD type: emphysema Emphysema type: panlobular Qualified Code(s): J43.1 - Panlobular emphysema Hypertension Qualifiers: Hypertension type: essential hypertension Qualified Code(s): I10 - Essential ( primary) hypertension Hypothyroidism Qualifiers: Hypothyroidism type: acquired Qualified Code(s): E03.9 - Hypothyroidism, unspecified Osteoarthritis Qualifiers: Osteoarthritis location: multiple joints Osteoarthritis type: primary Qualified Code(s): M15.0 - Primary generalized (osteo)arthritis Prescriptions: Doxycycline [Vibramycin] 100 mg PO BID #20 cap Instructions: Cellulitis, Adult, [id number], West Nile Virus Referrals: Cristin Locke PA-C [Primary Care Provider] - Forms: ED Department Discharge Additional Instructions: 1. Followup with your regular provider in 10-14 days as directed with additional consideration of repeat urine tests at that time. 2. Tylenol 650 mg by mouth every 4 hours and/or OTC ibuprofen 2-3 tabs by mouth every 6 hours with food as directed./needed. 3. Antibacterial soap wash/soak with subsequent antibacterial dressing such as Neosporin, etc. as directed 2 times per day until the wound site completely heals. Keep the area clean and dry with soap and Neosporin to be kept out of your eye as discussed. - Problem List & Annotations (1) Cellulitis SNOMED Code(s): 016503143 Code(s): L03.90 - CELLULITIS, UNSPECIFIED Status: Acute Priority: High Current Visit: Yes Onset Date: ~06/23/16 Annotation/Comment:: Continue current medical therapy with additional oral doxycycline secondary to the tick bite. Lyme's disease precautions and instructions provided to the patient with no direct evidence of significant symptoms, need for titers, etc. Qualifiers: Site of cellulitis: face Qualified Code(s): L03.211 - Cellulitis of face (2) Wood tick bite SNOMED Code(s): 45595559 Code(s): W57.XXXA - BIT/STUNG BY NONVENOM INSECT & OTH NONVENOM ARTHROPODS, INIT Status: Acute Priority: High Current Visit: Yes Onset Date: Annotation/Comment:: As above. Note that the tick bite area was disinfected with multiple alcohol wipes with subsequent careful removal of the entire tick by means of forceps. An otoscope was used to verify complete removal of the insect including stinger. Neosporin dressing placed by the nurse. Wound care as per discharge instructions (3) UTI, Urinary tract infectious disease SNOMED Code(s): 53642643 Code(s): N39.0 - URINARY TRACT INFECTION, SITE NOT SPECIFIED Status: Acute Priority: High Current Visit: Yes Onset Date: 06/19/16 Annotation/ Comment:: Continue current antibiotic therapy close followup by her regular provider as per discharge instructions (4) Hyperlipidemia SNOMED Code(s): 70938637 Code(s): E78.5 - HYPERLIPIDEMIA, UNSPECIFIED Status: Chronic Priority: Medium Current Visit: No Annotation/Comment:: Currently not under therapy Qualifiers: Hyperlipidemia type: unspecified Qualified Code(s): E78.5 - Hyperlipidemia , unspecified (5) Osteoarthritis SNOMED Code(s): 299261709 Code(s): M19.90 - UNSPECIFIED OSTEOARTHRITIS, UNSPECIFIED SITE Status: Chronic Priority: Medium Current Visit: Yes Annotation/Comment:: Otherwise stable by history with normal uric acid level on 06/19/16 Qualifiers: Osteoarthritis location: multiple joints Osteoarthritis type: primary Qualified Code(s): M15.0 - Primary generalized (osteo)arthritis (6) Hypertension SNOMED Code(s): 76751234 Code(s): I10 - ESSENTIAL (PRIMARY) HYPERTENSION Status: Chronic Priority : High Current Visit: Yes Annotation/Comment:: Patient did not take her medications this morning. Continue to observe closely by her regular provider. She was advised to take her morning medications [place] when she returns home Qualifiers: Hypertension type: essential hypertension Qualified Code(s): I10 - Essential (primary) hypertension (7) Hypothyroidism SNOMED Code(s): 90223390 Code(s): E03.9 - HYPOTHYROIDISM, UNSPECIFIED Status: Chronic Priority: Medium Current Visit: Yes Annotation/Comment:: Currently under therapy Qualifiers: Hypothyroidism type: acquired Qualified Code(s): E03.9 - Hypothyroidism, unspecified (8) COPD (chronic obstructive pulmonary disease) SNOMED Code(s): 37135423 Code(s): J44.9 - CHRONIC OBSTRUCTIVE PULMONARY DISEASE, UNSPECIFIED Status : Chronic Priority: Medium Current Visit: Yes Annotation/Comment:: By chest x-ray with no recent fever bronchitic-type symptoms and no current medical therapy required Qualifiers: COPD type: emphysema Emphysema type: panlobular Qualified Code(s): J43.1 - Panlobular emphysema - Problem List Review Problem List Initiated/Reviewed/Updated: Yes - Assessment/Plan Assessment:: As above Plan: As above. Extensive precautions were given to the patient, who is in agreement with the treatment plan. See Patient Instructions for further treatment and plan.
[2016-06-29] MEDS ORDERED: Bacitracin/Neomycin/Polymyxin B Oint 0.9 GM U/D Packet TOP ONE (10:30)
== END 2016-06-29 10:43 | disposition home or self-care (01) ==
LOC: LL.ED 10:07
DX: L03.211 Cellulitis of face (principal); N39.0 Urinary tract infection, site not specified; J43.1 Panlobular emphysema; I10 Essential (primary) hypertension; E03.9 Hypothyroidism, unspecified; Z88.2 Allergy status to sulfonamides; Z88.0 Allergy status to penicillin; Z79.82 Long term (current) use of aspirin; Z79.899 Other long term (current) drug therapy; E78.00 Pure hypercholesterolemia, unspecified; W57.XXXA Bitten or stung by nonvenomous insect and other nonvenomous arthropods, initial encounter
CPT/HCPCS: 10120; 99283

== ENCOUNTER 2017-03-08 02:55 | Emergency (ER) | payer MEDICARE, BC ==
--- NOTE | 2017-03-08 03:01 | EDM.PDOC ---
ED HPI GENERAL MEDICAL PROBLEM - General Chief Complaint: Cardiovascular Problem Stated Complaint: HTN, "not feeling right" Time Seen by Provider: 03/08/17 02:55 Source of Information: Reports: Patient, Family (Son), Old Records ([facility] chart/EMR) History Limitations: Reports: No Limitations - History of Present Illness INITIAL COMMENTS - FREE TEXT/NARRATIVE: The patient was brought to the emergency room via private automobile by her son for evaluation of elevated blood pressure this evening with home blood pressure of 166/103 and 180/99 the right arm and 95/60 in the left arm at home prior to arrival to the emergency room. Note the patient has a wrist home blood pressure monitor. She complains of just "not feeling well" prior to going to bed this evening at about 23:00 hours. She does admit to significant recent stress during the hols with the patient sewing 28 quilt blankets for her family since January. Note that the patient was changed from to Tenormin to low -dose Coreg on 01/29 secondary to medication availability with no repeat blood pressure checks to this point. The patient denies any chest pain/pressure, heart flutter, dizziness, orthostasis, orthopnea, diaphoresis, paresthesias, recent decreased exercise tolerance, or any other anginal-type symptoms. No recent history of abdominal pain, heartburn, nausea, diarrhea, melena, gross hematochezia, or any food intolerance, including fatty foods, etc.. Patient completed Macrobid therapy about 3 days ago secondary to a recent UTI with no current UTI symptoms. The patient also denies any recent fever, cough, wheezing , dyspnea, etc.. She has not used any recent OTC cold preparations, etc.. No history of recent headaches, visual changes, diplopia, change in mental status, or other change in neurological status. Also note that the patient was taken off of lisinopril several months ago secondary to a chronic cough with improved symptoms since that time. She denies any pain or other discomfort Onset: Gradual Onset Date: 03/07/17 Onset Time: 23:00 Duration: Intermittent Location: Reports: Other (No pain) Improves with: Reports: None Worsens with: Reports: None Context: Reports: Other (As above) Associated Symptoms: Denies: Confusion, Chest Pain, Cough, Diaphoresis, Fever/ Chills, Headaches, Loss of Appetite, Malaise, Nausea/Vomiting, Seizure, Shortness of Breath, Syncope, Weakness Treatments SUPERVISOR CORE DRILLING: Reports: Other (see below) (None) - Related Data Allergies Allergy/AdvReac Type Severity Reaction Status Date / Time levofloxacin [From Levaquin] Allergy Rash Verified 03/08/17 03:09 lisinopril Allergy Cough Verified 03/08/17 03:12 Penicillins Allergy Rash Verified 03/08/17 03:09 Sulfa (Sulfonamide Allergy Rash Verified 03/08/17 03:09 Antibiotics) Home Meds: Home Meds Levothyroxine Sodium [Synthroid] 75 mcg PO DAILY 03/31/14 [History] Aspirin 81 mg PO BEDTIME 02/24/15 [History] Carvedilol [Coreg] 12.5 mg PO BIDM #60 tablet 03/08/17 [Rx] Cyanocobalamin (Vitamin B12) [Vitamin B12] 1,000 mcg IM Q30D 03/08/17 [History] Past Medical History HEENT History: Reports: Cataract, Hard of Hearing, Impaired Vision, Macular Degeneration, Other (See Below). Denies: Allergic Rhinitis, Glaucoma, Retinal Detachment Other HEENT History: Wears glasses, bilateral hearing aides, bilateral macular degeneration with current intraocular treatments Cardiovascular History: Reports: Arrhythmia, High Cholesterol, Hypertension, Pacemaker, Other (See Below). Denies: Afib, Aneurysm, Blood Clots/VTE/DVT, CAD , Heart Failure, Heart Murmur, [place], PTCA, PVD, Stents, Syncope Other Cardiovascular History: Pacemaker placement as below secondary to sick sinus syndrome, Mobitz 1 second-degree AV block, and then subsequent complete heart block, mild cardiomegaly by chest x-ray Respiratory History: Reports: COPD, Other (See Below). Denies: Asthma, Intubation, Previous, PE, Pneumothorax, Pulmonary Fibrosis, Sleep Apnea Other Respiratory History: COPD by chest x-ray with no treatment needed at this time Gastrointestinal History: Reports: Chronic Constipation, Diverticulosis, Gastritis, GERD, Jaundice, Other (See Below). Denies: Celiac Disease, Cholelithiasis, Chronic Diarrhea, Colon Polyp, Fecal Incontinence, GI Bleed, Hepatitis, Hiatal Hernia, Inflammatory Bowel Disease, Irritable Bowel Syndrome, Pancreatitis, PUD Other Gastrointestinal History: jaundice, benign hepatic cysts Genitourinary History: Reports: Retention, Urinary, UTI, Recurrent, Other (See Below). Denies: Acute Renal Failure, Chronic Renal Insuffiency, Renal Calculus , STD, Urinary Incontinence Other Genitourinary History: Bilateral benign renal cysts, benign left renal hamartoma by CT scan in August 2009 and as below DIPLOMATIC OFFICER History: Reports: , Spontaneous . Denies: Dysfunctional Uterine Bleeding, Endometriosis, Fibroids, Polycystic Ovaries : 8 Para: 6 LMP (Approximate): Other (See Below) Other OB/BYN History: Menopause in her 40s, first trimester SAB with D&C as below, otherwise Full term without complications during pregnancies or deliveries Musculoskeletal History: Reports: Arthritis, Back Pain, Chronic, Fracture, Neck Pain, Chronic, Osteoarthritis, Osteoporosis, Other (See Below). Denies: Gout, RA, SLE Other Musculoskeletal History: Left wrist fracture on 08/24/14, left partial Achilles tendon tear on 04/27/14, pes planus, right foot fracture in the early , scoliosis; Neurological History: Reports: Headaches, Chronic, Migraines, Other (See Below) . Denies: Alzheimers Disease, Cerebral Aneurysms, Concussion, CVA, Head Trauma , Neuropathy, Diabetic, Neuropathy, Peripheral, Parkinson's, Seizure, TIA Other Neuro History: Previous history of migraine headaches currently under good control Psychiatric History: Reports: Anxiety, Depression. Denies: Abuse, Victim of, ADD, ADHD, Addiction, Panic Attack, Psych Hospitalization(s), PTSD, Suicide Attempt, Suicidal Ideation Endocrine/Metabolic History: Reports: Hypothyroidism, Osteoporosis, Other (See Below). Denies: Diabetes, Type I, Diabetes, Type II, IDDM Other Endocrine/Metabolic History: Thyroid surgery as below with secondary hypothyroidism and history of multiple thyroid cysts Hematologic History: Reports: Anemia, B12 Deficiency. Denies: Blood Transfusion (s), Iron Deficiency Immunologic History: Reports: None. Denies: AIDS, HIV, SLE Oncologic (Cancer) History: Reports: None. Denies: Basal Cell Carcinoma, Cervix , Colon, Hodgkin's Lymphoma, Leukemia, Malignant Melanoma, Non-Hodgkin's Lymphoma, Squamous Cell Carcinoma Dermatologic History: Reports: None. Denies: Eczema, Psoriasis - Infectious Disease History Infectious Disease History: Reports: Chicken Pox, Mumps, Pertussis (Whooping Cough), Rubella, Scarlet Fever. Denies: C-Difficile, Measles, Meningitis, Mononucleosis, MRSA, TB, VRE - Past Surgical History Head Surgeries/Procedures: Reports: None HEENT Surgical History: Reports: Cataract Surgery, Oral Surgery, Other (See Below). Denies: Adenoidectomy, Eye Surgery, LASIK, Myringotomy w Tube(s), Naso- Sinus Surgery, Tonsillectomy Other HEENT Surgeries/Procedures: Earth teeth extraction 4 in her 20s with additional multiple tooth extractions; bilateral cataract surgeries with right sided extraction in about 2014 and left-sided cataract surgery in about 2004; Cardiovascular Surgical History: Reports: Pacer, Other (See Below). Denies: Varicose, Vascular Surgery Other Cardiovascular Surgeries/Procedures: Pacemaker placement on 10/09/07 Respiratory Surgical History: Reports: None. Denies: Lung Biopsies, Thoracentesis GI Surgical History: Reports: Appendectomy, Other (See Below). Denies: Cholecystectomy, Colonoscopy, EGD, Hernia, Abdominal, Hernia, Inguinal, Hernia Repair/Other Other GI Surgeries/Procedures: Appendectomy on 12/25/14 Female Surgical History: Reports: Breast Biopsy, D&C, Tubal Ligation, Other ( See Below) Other Female Surgeries/Procedures: Right breast biopsy for benign disease in about 1962; D&C secondary to SAB in about ; bilateral tubal ligation in her early 30s Endocrine Surgical History: Reports: Thyroid Biopsy, Thyroidectomy, Other (See Below) Other Endocrine Surgeries/Procedures: Left partial hemithyroidectomy in the Neurological Surgical History: Reports: None. Denies: C-Spine, Discectomy, Laminectomy, Lumbar Spine, Sacral Spine, Vertebroplasty Musculoskeletal Surgical History: Reports: Arthroscopic Knee, Arthroscopic Procedure, Other (See Below). Denies: Carpal Tunnel, Ganglion Cyst, Joint Replacement, ORIF, Shoulder Surgery Other Musculoskeletal Surgeries/Procedures:: Right arthroscopic knee surgery in about 1979 Oncologic Surgical History: Reports: Biopsy of Breast, Other (See Below) Other Oncologic Surgeries/Procedures: Breast biopsy as above Dermatological Surgical History: Reports: None - Past Imaging History Past Imaging History: Reports: CAT Scan (CT of the abdomen and pelvis with contrast on 02/24/15 and 08/26/09), DEXA Scan (12/18/11), Stress Testing ( Cardiolite stress test on 04/15/03), Ultrasound (Thyroid ultrasound on 9/15/14; arterial Doppler evaluation of the left forearm on 11/05/12; renal ultrasound on 03/15/12; gallbladder ultrasound on 11/15/06) Social & Family History - Tobacco Use Smoking Status *Q: Never Smoker Used Tobacco, but Quit: No Second Hand Smoke Exposure: No Second Hand Smoke Education Provided: No - Caffeine Use Caffeine Use: Reports: Coffee (3 cups per day). Denies: Energy Drinks, Soda, Tea - Alcohol Use Alcohol Use History: Yes Days Per Week of Alcohol Use: 4 (No previous DWIs, problems with alcohol abuse, etc.) Number of Drinks Per Day: 1 (Usually wine) Total Drinks Per Week: 4 Alcohol Use in Last Twelve Months: Yes - Recreational Drug Use Recreational Drug Use: No Drug Use in Last 12 Months: No Recreational Drug Type: Denies: Amphetamines (Speed), Cocaine, Heroin, Inhalants (Glues, Solvents, Aerosols), LSD (Acid), Marijuana/Hashish, Methamphetamine, Morphine - Living Situation & Occupation Living situation: Reports: (2012, 5 children living), Alone Occupation: Other ([employer] in the past) ED ROS GENERAL - Review of Systems Review Of Systems: ROS reveals no pertinent complaints other than HPI. ED EXAM, GENERAL - Physical Exam Exam: See Below Exam Limited By: No Limitations General Appearance: Alert, WD/WN, No Apparent Distress, Anxious (Mild to moderate) Head: Atraumatic, Normocephalic Neck: Normal Inspection, Supple, Non-Tender, Full Range of Motion. No: Lymphadenopathy (L), Lymphadenopathy (R), Thyromegaly Respiratory/Chest: No Respiratory Distress, Lungs Clear, Normal Breath Sounds, No Accessory Muscle Use, Chest Non-Tender. No: Pleural Rub, Retractions Cardiovascular: Normal Peripheral Pulses, Regular Rate, Rhythm, No Edema, No Gallop, No JVD, No Murmur, No Rub. No: Gallop/S3, Gallop/S4, Friction Rub Peripheral Pulses: 2+: Radial (L), Radial (R), Dorsalis Pedis (L), Dorsalis Pedis (R) GI/Abdominal: Normal Bowel Sounds, Soft, Non-Tender, No Organomegaly, No Distention, No Abnormal Bruit, No Mass, Other (obese). No: Guarding (Female) Exam: Deferred Rectal (Female) Exam: Deferred Back Exam: Normal Inspection, Full Range of Motion. No: CVA Tenderness (L), CVA Tenderness (R), Muscle Spasm Extremities: Normal Range of Motion, Non-Tender, No Pedal Edema, Normal Capillary Refill, Other (Severe bilateral pes planus). No: Pedal Edema, Eileen' s Sign Neurological: Alert, Oriented, CN II-XII Intact, Normal Cognition, Normal Gait, Normal Reflexes (Negative Babinski's), No Motor/Sensory Deficits Psychiatric: Anxious (Mild to moderate), Depressed Mood (Borderline) Skin Exam: Warm, Dry, Intact, Normal Color, No Rash. No: Diaphoretic, Wound/ Incision Lymphatic: No Adenopathy Course - Vital Signs Last Recorded V/S: Last Vital Signs Temp 36.7 C 03/08/17 03:00 Pulse 64 03/08/17 03:16 Resp 16 03/08/17 03:16 BP 173/90 H 03/08/17 03:16 Pulse Ox 95 03/08/17 03:16 Vital Signs - 24 hr 03/08/17 03/08/17 03/08/17 03:00 03:08 03:16 Temperature [ 36.7 C Temporal] Pulse, 67 64 Peripheral [ Apical] Respiratory 14 16 Rate Blood Pressure 188/90 H 173/90 H [Left Upper Arm ] Blood Pressure 195/85 H 186/98 H [Right Upper Arm] O2 Sat by Pulse 100 95 Oximetry - Orders/Labs/Meds Orders: Active Orders 24 hr Category Date Time Status Cardiac Monitoring [RC] . DIRECTED Care 03/08/17 03:01 Active Obtain Past Medical Record [OM.PC] Routine Oth 03/08/17 03:01 Active Labs: None Meds: None - Radiology Interpretation Free Text/Narrative:: Hand Ironer shows 100% paced rhythm with heart rate in the 60s with no ectopy or arrhythmia Departure - Departure Time of Disposition: 03:45 Disposition: Home, Self-Care 01 Condition: Good Clinical Impression: Mixed anxiety depressive disorder COPD (chronic obstructive pulmonary disease) Qualifiers: COPD type: emphysema Emphysema type: panlobular Qualified Code(s): J43.1 - Panlobular emphysema Hyperlipidemia Qualifiers: Hyperlipidemia type: unspecified Qualified Code(s): E78.5 - Hyperlipidemia, unspecified Hypertension Qualifiers: Hypertension type: essential hypertension Qualified Code(s): I10 - Essential ( primary) hypertension Hypothyroidism Qualifiers: Hypothyroidism type: acquired Qualified Code(s): E03.9 - Hypothyroidism, unspecified Osteoarthritis Qualifiers: Osteoarthritis location: multiple joints Osteoarthritis type: primary Qualified Code(s): M15.0 - Primary generalized (osteo)arthritis Prescriptions: Carvedilol [Coreg] 12.5 mg PO BIDM #60 tablet Instructions: Hypertension, [id number] Referrals: Cristin Locke PA-C [Primary Care Provider] - Forms: ED Department Discharge Additional Instructions: 1. Followup with your regular provider in 7 days as directed. 2. Continue to take your blood pressures on a 2 times daily basis with this to be taken immediately prior to taking your Coreg with record to be brought to follow-up visits 3. Your Coreg is essentially your current tablets 2 tablets twice a day until gone with new prescription thereafter with only one tablet 2 times a day at that time 4. Consider repeat urine tests at your follow-up visit - Problem List & Annotations (1) Hypertension SNOMED Code(s): 44326577 Code(s): I10 - ESSENTIAL (PRIMARY) HYPERTENSION Status: Chronic Priority : High Annotation/Comment:: Note recent multiple medication changes as above. Lisinopril was added to her allergy list today. Continue to observe closely by her regular provider with Coreg increased today as per discharge instructions. Note current pacemaker with concerns of bradycardia from today's medication adjustment not an issue. Qualifiers: Hypertension type: essential hypertension Qualified Code(s): I10 - Essential (primary) hypertension (2) Mixed anxiety depressive disorder SNOMED Code(s): 401935004 Code(s): F41.8 - OTHER SPECIFIED ANXIETY DISORDERS Status: Chronic Priority: Medium Annotation/Comment:: No current medical therapy. Note recent increased stressors as above. Continue to observe closely by her regular provider with consideration of medical therapy, etc. (3) COPD (chronic obstructive pulmonary disease) SNOMED Code(s): 69094401 Code(s): J44.9 - CHRONIC OBSTRUCTIVE PULMONARY DISEASE, UNSPECIFIED Status : Chronic Priority: Medium Annotation/Comment:: Stable by history with no recent fever bronchitic-type symptoms, fever, etc. with no current medical therapy required Qualifiers: COPD type: emphysema Emphysema type: panlobular Qualified Code(s): J43.1 - Panlobular emphysema (4) Hyperlipidemia SNOMED Code(s): 46085380 Code(s): E78.5 - HYPERLIPIDEMIA, UNSPECIFIED Status: Chronic Priority: Medium Annotation/Comment:: Currently not under therapy Qualifiers: Hyperlipidemia type: unspecified Qualified Code(s): E78.5 - Hyperlipidemia , unspecified (5) Hypothyroidism SNOMED Code(s): 59054449 Code(s): E03.9 - HYPOTHYROIDISM, UNSPECIFIED Status: Chronic Priority: Medium Annotation/Comment:: Currently under therapy Qualifiers: Hypothyroidism type: acquired Qualified Code(s): E03.9 - Hypothyroidism, unspecified (6) Osteoarthritis SNOMED Code(s): 814726753 Code(s): M19.90 - UNSPECIFIED OSTEOARTHRITIS, UNSPECIFIED SITE Status: Chronic Priority: Medium Annotation/Comment:: Otherwise stable by history with normal uric acid level on 06/19/16 Qualifiers: Osteoarthritis location: multiple joints Osteoarthritis type: primary Qualified Code(s): M15.0 - Primary generalized (osteo)arthritis - Problem List Review Problem List Initiated/Reviewed/Updated: Yes - My Orders Last 24 Hours: My Active Orders 03/08/17 03:01 Cardiac Monitoring [RC] . DIRECTED Obtain Past Medical Record [OM.PC] Routine - Assessment/Plan Last 24 Hours: My Active Orders 03/08/17 03:01 Cardiac Monitoring [RC] . DIRECTED Obtain Past Medical Record [OM.PC] Routine Assessment:: As above Plan: As above. Extensive precautions were given to the patient, who is in agreement with the treatment plan. See Patient Instructions for further treatment and plan.
[2017-03-08 03:17] VITALS: BP 173/90
== END 2017-03-08 03:40 | disposition home or self-care (01) ==
LOC: LL.ED 02:55
DX: I10 Essential (primary) hypertension (principal); F41.8 Other specified anxiety disorders; J43.1 Panlobular emphysema; E78.5 Hyperlipidemia, unspecified; E03.9 Hypothyroidism, unspecified; M15.0 Primary generalized (osteo)arthritis; Z95.0 Presence of cardiac pacemaker; Z79.82 Long term (current) use of aspirin; Z79.899 Other long term (current) drug therapy; Z88.0 Allergy status to penicillin; Z88.2 Allergy status to sulfonamides; Z88.1 Allergy status to other antibiotic agents; Z88.8 Allergy status to other drugs, medicaments and biological substances
CPT/HCPCS: 99283; 99284

== ENCOUNTER 2017-03-20 13:13 | Emergency (ER) | payer MEDICARE, BC ==
[2017-03-20 13:41] VITALS: BP 180/76
--- NOTE | 2017-03-20 13:42 | EDM.PDOC ---
ED HPI GENERAL MEDICAL PROBLEM - General Chief Complaint: Head Injury Stated Complaint: fall on ice with head injury Time Seen by Provider: 03/20/17 13:30 Source of Information: Reports: Patient History Limitations: Reports: No Limitations - History of Present Illness INITIAL COMMENTS - FREE TEXT/NARRATIVE: Patient is a 82-year-old female who was seen in the emergency room after falling and hitting her head on the pavement patient was at the [facility] when she was leaning the sidewalks were icy where she slipped and hit her head denies loss of consciousness denies nausea vomiting or headache at this time patient has a history of hypertension Onset: Sudden Duration: Minutes:, Constant Location: Reports: Face (Left zygomatic arch area) Quality: Reports: Ache, Dull Severity: Mild Improves with: Reports: Cold Therapy Worsens with: Reports: None Context: Reports: Trauma Associated Symptoms: Reports: No Other Symptoms - Related Data Allergies Allergy/AdvReac Type Severity Reaction Status Date / Time levofloxacin [From Levaquin] Allergy Rash Verified 03/20/17 13:34 lisinopril Allergy Cough Verified 03/20/17 13:34 Penicillins Allergy Rash Verified 03/20/17 13:34 Sulfa (Sulfonamide Allergy Rash Verified 03/20/17 13:34 Antibiotics) Home Meds: Home Meds Levothyroxine Sodium [Synthroid] 75 mcg PO DAILY 03/31/14 [History] Aspirin 81 mg PO BEDTIME 02/24/15 [History] Cyanocobalamin (Vitamin B12) [Vitamin B12] 1,000 mcg IM Q30D 03/08/17 [History] Atenolol [Atenolol] 25 mg PO BID 03/20/17 [History] Past Medical History HEENT History: Reports: Cataract, Hard of Hearing, Impaired Vision, Macular Degeneration, Other (See Below). Denies: Allergic Rhinitis, Glaucoma, Retinal Detachment Other HEENT History: Wears glasses, bilateral hearing aides, bilateral macular degeneration with current intraocular treatments Cardiovascular History: Reports: Arrhythmia, High Cholesterol, Hypertension, Pacemaker, Other (See Below). Denies: Afib, Aneurysm, Blood Clots/VTE/DVT, CAD , Heart Failure, Heart Murmur, VT, PTCA, PVD, Stents, Syncope Other Cardiovascular History: Pacemaker placement as below secondary to sick sinus syndrome, Mobitz 1 second-degree AV block, and then subsequent complete heart block, mild cardiomegaly by chest x-ray Respiratory History: Reports: COPD, Other (See Below). Denies: Asthma, Intubation, Previous, PE, Pneumothorax, Pulmonary Fibrosis, Sleep Apnea Other Respiratory History: COPD by chest x-ray with no treatment needed at this time Gastrointestinal History: Reports: Chronic Constipation, Diverticulosis, Gastritis, GERD, Jaundice, Other (See Below). Denies: Celiac Disease, Cholelithiasis, Chronic Diarrhea, Colon Polyp, Fecal Incontinence, GI Bleed, Hepatitis, Hiatal Hernia, Inflammatory Bowel Disease, Irritable Bowel Syndrome, Pancreatitis, PUD Other Gastrointestinal History: jaundice, benign hepatic cysts Genitourinary History: Reports: Retention, Urinary, UTI, Recurrent, Other (See Below). 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 Denies: Dysfunctional Uterine Bleeding, Endometriosis, Fibroids, Polycystic Ovaries Other OB/BYN History: Menopause in her 40s, first trimester SAB with D&C as below, otherwise Full term without complications during pregnancies or deliveries Musculoskeletal History: Reports: Arthritis, Back Pain, Chronic, Fracture, Neck Pain, Chronic, Osteoarthritis, Osteoporosis, Other (See Below). Denies: Gout, RA, SLE Other Musculoskeletal History: Left wrist fracture on 08/24/14, left partial Achilles tendon tear on 04/27/14, pes planus, right foot fracture in the early , scoliosis; Neurological History: Reports: Headaches, Chronic, Migraines, Other (See Below) . Denies: Alzheimers Disease, Cerebral Aneurysms, Concussion, CVA, Head Trauma , Neuropathy, Diabetic, Neuropathy, Peripheral, Parkinson's, Seizure, TIA Other Neuro History: Previous history of migraine headaches currently under good control Psychiatric History: Reports: Anxiety, Depression. Denies: Abuse, Victim of, ADD, ADHD, Addiction, Panic Attack, Psych Hospitalization(s), PTSD, Suicide Attempt, Suicidal Ideation Endocrine/Metabolic History: Reports: Hypothyroidism, Osteoporosis, Other (See Below). Denies: Diabetes, Type I, Diabetes, Type II, IDDM Other Endocrine/Metabolic History: Thyroid surgery as below with secondary hypothyroidism and history of multiple thyroid cysts Hematologic History: Reports: Anemia, B12 Deficiency. Denies: Blood Transfusion (s), Iron Deficiency Immunologic History: Reports: None. Denies: AIDS, HIV, SLE Oncologic (Cancer) History: Reports: None. Denies: Basal Cell Carcinoma, Cervix , Colon, Hodgkin's Lymphoma, Leukemia, Malignant Melanoma, Non-Hodgkin's Lymphoma, Squamous Cell Carcinoma Dermatologic History: Reports: None. Denies: Eczema, Psoriasis - Infectious Disease History Infectious Disease History: Reports: Chicken Pox, Mumps, Pertussis (Whooping Cough), Rubella, Scarlet Fever. Denies: C-Difficile, Measles, Meningitis, Mononucleosis, MRSA, TB, VRE - Past Surgical History Head Surgeries/Procedures: Reports: None HEENT Surgical History: Reports: Cataract Surgery, Oral Surgery, Other (See Below). Denies: Adenoidectomy, Eye Surgery, LASIK, Myringotomy w Tube(s), Naso- Sinus Surgery, Tonsillectomy Other HEENT Surgeries/Procedures: Dana teeth extraction 4 in her 20s with additional multiple tooth extractions; bilateral cataract surgeries with right sided extraction in about 2014 and left-sided cataract surgery in about 2004; Cardiovascular Surgical History: Reports: Pacer, Other (See Below). Denies: Varicose, Vascular Surgery Other Cardiovascular Surgeries/Procedures: Pacemaker placement on 10/09/07 Respiratory Surgical History: Reports: None. Denies: Lung Biopsies, Thoracentesis GI Surgical History: Reports: Appendectomy, Other (See Below). Denies: Cholecystectomy, Colonoscopy, EGD, Hernia, Abdominal, Hernia, Inguinal, Hernia Repair/Other Other GI Surgeries/Procedures: Appendectomy on 12/25/14 Female Surgical History: Reports: Breast Biopsy, D&C, Tubal Ligation, Other ( See Below) Other Female Surgeries/Procedures: Right breast biopsy for benign disease in about 1963; D&C secondary to SAB in about 1960s; bilateral tubal ligation in her early 30s Endocrine Surgical History: Reports: Thyroid Biopsy, Thyroidectomy, Other (See Below) Other Endocrine Surgeries/Procedures: Left partial hemithyroidectomy in the Neurological Surgical History: Reports: None. Denies: C-Spine, Discectomy, Laminectomy, Lumbar Spine, Sacral Spine, Vertebroplasty Musculoskeletal Surgical History: Reports: Arthroscopic Knee, Arthroscopic Procedure, Other (See Below). Denies: Carpal Tunnel, Ganglion Cyst, Joint Replacement, ORIF, Shoulder Surgery Other Musculoskeletal Surgeries/Procedures:: Right arthroscopic knee surgery in about 1979 Oncologic Surgical History: Reports: Biopsy of Breast, Other (See Below) Other Oncologic Surgeries/Procedures: Breast biopsy as above Dermatological Surgical History: Reports: None - Past Imaging History Past Imaging History: Reports: CAT Scan (CT of the abdomen and pelvis with contrast on 02/24/15 and 08/26/09), DEXA Scan (12/18/11), Stress Testing ( Cardiolite stress test on 04/15/03), Ultrasound (Thyroid ultrasound on 11/24/13; arterial Doppler evaluation of the left forearm on 11/05/12; renal ultrasound on 03/15/12; gallbladder ultrasound on 11/15/06) Social & Family History - Tobacco Use Smoking Status *Q: Never Smoker Used Tobacco, but Quit: No Second Hand Smoke Exposure: No - Caffeine Use Caffeine Use: Reports: Coffee (3 cups per day). Denies: Energy Drinks, Soda, Tea - Alcohol Use Days Per Week of Alcohol Use: 4 (No previous DWIs, problems with alcohol abuse, etc.) Number of Drinks Per Day: 1 (Usually wine) Total Drinks Per Week: 4 - Recreational Drug Use Recreational Drug Use: No Drug Use in Last 12 Months: No - Living Situation & Occupation Living situation: Reports: (2012, 5 children living), Alone Occupation: Other ([employer] in the past) ED ROS GENERAL - Review of Systems Review Of Systems: See Below Constitutional: Reports: No Symptoms HEENT: Reports: Hearing Loss (Wears hearing aids) Respiratory: Reports: No Symptoms Cardiovascular: Reports: Blood Pressure Problem Endocrine: Reports: No Symptoms GI/Abdominal: Reports: No Symptoms : Reports: No Symptoms Musculoskeletal: Reports: No Symptoms Skin: Reports: Rash, Erythema, Change in Color (Left zygomatic area) Neurological: Reports: No Symptoms Psychiatric: Reports: No Symptoms Hematologic/Lymphatic: Reports: No Symptoms Immunologic: Reports: No Symptoms ED EXAM, HEAD INJURY - Physical Exam Exam: See Below Exam Limited By: No Limitations General Appearance: Alert, WD/WN, No Apparent Distress Head: Normocephalic, Facial Abrasions (Left zygomatic area) Nexus Criteria: No: Posterior, Midline Cervical Tenderness, Evidence of Intoxication, Altered Level of Consciousness, Focal Neurological Deficit, Painful Distraction Injuries Eyes: Bilateral Eye: EOMI, PERRL Ears: Normal External Exam, Normal Canal, Hearing Grossly Normal, Normal TMs Nose: Normal Inspection, Normal Mucousa, No Blood Throat/Mouth: Normal Inspection, Normal Lips, Normal Teeth, Normal Gums, Normal Oropharynx, Normal Voice, No Airway Compromise Neck: Non-Tender, Full Range of Motion, Normal Alignment, Normal Inspection Respiratory: No Respiratory Distress, Lungs Clear, Normal Breath Sounds, No Accessory Muscle Use, Chest Non-Tender Cardiovascular: Normal Peripheral Pulses, Regular Rate, Rhythm, No Edema, No Gallop, No JVD, No Murmur, No Rub GI/Abdominal Exam: Normal Bowel Sounds, Soft, Non-Tender, No Organomegaly, No Distention, No Abnormal Bruit, No Mass (Female) Exam: Deferred Rectal (Female) Exam: Deferred Back Exam: Full Range of Motion, Normal Inspection, NT Extremities: Normal Inspection, Normal Range of Motion, Non-Tender, No Pedal Edema, Normal Capillary Refill 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 nml As Tested, No Motor/Sensory Deficits, Alert, Normal Mood/Affect, Oriented x 3 Skin: Normal Color, Warm/Dry - [place] Coma Score Best Eye Response ([place]): (4) Open Spontaneously Best Verbal Response ([place]): (5) Oriented Best Motor Response ([place]): (6) Obeys Commands Course - Vital Signs Last Recorded V/S: Last Vital Signs Temp 98.2 F 03/20/17 13:30 Pulse 61 03/20/17 13:30 Resp 18 03/20/17 13:30 BP 180/76 H 03/20/17 13:30 Pulse Ox 99 03/20/17 13:30 Departure - Departure Time of Disposition: 13:47 Disposition: Home, Self-Care 01 Condition: Good Clinical Impression: Facial contusion - Discharge Information Referrals: Cristin Locke PA-C [Primary Care Provider] - Forms: ED Department Discharge Care Plan Goals: Patient will be sent home she is to take her blood pressure medication recheck her blood pressure and return if any changes in her mental mental status
== END 2017-03-20 14:10 | disposition home or self-care (01) ==
LOC: LL.ED 13:13
DX: S00.83XA Contusion of other part of head, initial encounter (principal); S00.81XA Abrasion of other part of head, initial encounter; E78.00 Pure hypercholesterolemia, unspecified; I10 Essential (primary) hypertension; Z88.1 Allergy status to other antibiotic agents; Z88.0 Allergy status to penicillin; Z88.2 Allergy status to sulfonamides; Z88.8 Allergy status to other drugs, medicaments and biological substances; Z79.899 Other long term (current) drug therapy; Z79.82 Long term (current) use of aspirin; W00.9XXA Unspecified fall due to ice and snow, initial encounter
CPT/HCPCS: 99283